=== PATIENT | male | born 1980 | race African-American/Black ===

== ENCOUNTER 2019-09-20 23:34 | Observation (INO) ==
[2019-09-21 00:57] LABS: Basophils % 0.2 % (0.0-0.8); Hematocrit 49.7 VOL% (42.0-52.0); Hemoglobin 16.1 GM/DL (14.0-18.0); Immature Granulocytes % 0.2 %; Immature Granulocytes Absolute 0.03 #; Lymphocytes # 1.3 10*3/uL (1.4-4.0); Mean Corpuscular HGB Conc 32.4 GM/DL (32-36); Mean Platelet Volume 9.3 FL (9.6-12.0); Neutrophils % 82.6 % (38.7-73.9); Platelet Count 219 T/CUMM (130-400); Red Blood Count 5.71 MC/CUMM (3.8-5.5); Red Cell Distribution Width 13.8 % (9.3-17.3); White Blood Count 12.1 T/CUMM (4-12)
[2019-09-21 01:29] LABS: Alanine Aminotransferase 34 U/L (16-61); Albumin 4.7 G/DL (3.4-5.0); Alkaline Phosphatase 130 U/L (45-117); Aspartate Amino Transferase 76 U/L (0-37); Blood Urea Nitrogen 34 MG/DL (7-18); Calcium 9.8 MG/DL (8.5-10.1); Estimated Glom Filtration Rate 50 ML/MIN; Glucose 100 MG/DL (74-106); Osmolality,Calculated 271.5 MOS/KG (273-304); Total Protein 9.5 G/DL (6.4-8.3)
[2019-09-21] MEDS ORDERED: SODIUM CHLORIDE 0.9% 1,000 ML IV STA (01:40)
[2019-09-21 01:54] LABS: Acetaminophen < 2.0 UG/ML (10-30); Salicylate < 2.8 MG/DL (2.8-20)
[2019-09-21 01:57] LABS: Barbiturates Screen,Urine Negative (Negative); Benzodiazepines Screen,Urine Negative (Negative); Cannabinoid Screen,Urine Positive (Negative); Opiate Screen,Urine Negative (Negative); Phencyclidine Screen,Urine Negative (Negative)
[2019-09-21] MEDS ORDERED: INSULIN REGULAR 100 UNIT/ML IV STA (02:26)
[2019-09-21] MEDS ORDERED: DEXTROSE 50% 25 GM/50 ML VIAL IV STA (02:26)
[2019-09-21] MEDS ORDERED: DEXTROSE 50% 25 GM/50 ML SYRINGE IV ONE (02:59)
[2019-09-21] MEDS ORDERED: guaiFENesin/DM ER 600-30 MG TABLET PO PRN (03:32)
[2019-09-21] MEDS ORDERED: diphenhydrAMINE CAP 25 MG CAPSULE PO PRN (03:32)
[2019-09-21] MEDS ORDERED: NICOTINE 21 MG/24 HR PATCH TRANSDERM PRN (03:32)
[2019-09-21] MEDS ORDERED: ONDANSETRON 4 MG/2 ML VIAL IV PRN (03:32)
[2019-09-21] MEDS ORDERED: ALUMINUM/MAGNES/SIMETH MAX STR 30 ML UDCUP PO PRN (03:32)
[2019-09-21] MEDS ORDERED: GLUCAGON 1 MG VIAL IM PRN (03:32)
[2019-09-21] MEDS ORDERED: hydrALAZINE 20 MG/1 ML VIAL IV PRN (03:32)
[2019-09-21] MEDS ORDERED: MORPHINE 4 MG/1 ML VIAL IV PRN (03:32)
[2019-09-21] MEDS ORDERED: DEXTROSE 50% 25 GM/50 ML VIAL IV PRN (03:32)
[2019-09-21] MEDS ORDERED: ACETAMINOPHEN 325 MG TABLET PO PRN (03:32)
[2019-09-21] MEDS: SODIUM CHLORIDE 0.9% 1,000 ML IV SCH ×3 (04:35→23:35)
[2019-09-21] MEDS ORDERED: LORazepam 2 MG/1 ML VIAL IV PRN (05:39)
[2019-09-21] MEDS ORDERED: SODIUM POLYSTYRENE SULFATE 15 GM/60 ML BOTTLE PO ONE (06:25)
[2019-09-21 06:41] LABS: Albumin 4.1 G/DL (3.4-5.0); Bilirubin,Total 2.2 MG/DL (0.2-1.0); Calcium 9.8 MG/DL (8.5-10.1); Osmolality,Calculated 274.1 MOS/KG (273-304); Total Protein 8.9 G/DL (6.4-8.3)
[2019-09-22] MEDS: SODIUM CHLORIDE 0.9% 1,000 ML IV SCH ×2 (05:41→14:09)
[2019-09-22 08:55] LABS: Osmolality,Calculated 282.3 MOS/KG (273-304)
[2019-09-22 15:11] VITALS: BP 112/70
== END 2019-09-22 17:38 ==
LOC: N.EDINP 23:34 → N.ED 23:34 → SUATTDRO 09-21 03:32 → N.TELES 09-21 04:29
PROVIDERS: ADMIT Internal Medicine; ATTEND Internal Medicine

== ENCOUNTER 2021-10-16 00:07 | Inpatient (IN) ==
[2021-10-16] MEDS ORDERED: ONDANSETRON 4 MG/2 ML VIAL ONE (00:15)
[2021-10-16] MEDS ORDERED: MORPHINE 2 MG/1 ML SYRINGE ONE (00:15)
[2021-10-16] MEDS ORDERED: DIPH/TET/ACEL PERT BOOSTER VACCINE 0.5 ML VIAL IM ONE (00:19)
[2021-10-16] MEDS ORDERED: MORPHINE 2 MG/1 ML SYRINGE IV STA (00:21)
[2021-10-16] MEDS ORDERED: SODIUM CHLORIDE 0.9% 1,000 ML IV STA (00:22)
[2021-10-16] MEDS ORDERED: ONDANSETRON 4 MG/2 ML VIAL IV STA (00:22)
[2021-10-16 00:27] LABS: Basophils # 0.1 10*3/uL (0.0-0.2); Basophils % 0.7 % (0.0-0.8); Eosinophils # 0.1 10*3/uL (0.0-0.87); Eosinophils % 1.5 % (0.00-10.9); Hematocrit 38.8 VOL% (42.0-52.0); Immature Granulocytes % 0.1 %; Immature Granulocytes Absolute 0.01 #; Lymphocytes # 2.8 10*3/uL (1.4-4.0); Lymphocytes % 41.8 % (21.2-54.2); Mean Corpuscular HGB Conc 30.9 GM/DL (32-36); Mean Corpuscular Volume 91.7 FL (87-102); Mean Platelet Volume 9.1 FL (9.6-12.0); Monocytes # 0.5 10*3/uL (0.11-0.8); Monocytes % 6.9 % (1.7-12.7); Platelet Count 191 T/CUMM (130-400); Red Blood Count 4.23 MC/CUMM (3.8-5.5); Red Cell Distribution Width 15.1 % (9.3-17.3); White Blood Count 6.8 T/CUMM (4-12)
[2021-10-16 00:36] LABS: PT Patient Result 10.7 SECS (10.5-12.0); Partial Thromboplastin Time 22.2 SECS (23.8-32.1)
[2021-10-16] MEDS ORDERED: MICROFIBRILLAR COLLAGEN POWDER 1 GM CAN TOP ONE (00:45)
[2021-10-16] MEDS ORDERED: SEVOFLURANE 1 UNIT/15 MINUTE INH ONE ×5 (00:48→01:36)
[2021-10-16] MEDS ORDERED: ROCURONIUM 50 MG/5 ML VIAL IV ONE (00:48)
[2021-10-16] MEDS ORDERED: LIDOCAINE 2% 5 ML VIAL ONE (00:48)
[2021-10-16] MEDS ORDERED: ETOMIDATE 40 MG/20 ML VIAL IV ONE (00:48)
[2021-10-16] MEDS ORDERED: fentaNYL 250 MCG/5 ML VIAL ONE (00:50)
[2021-10-16 01:10] LABS: Alanine Aminotransferase 167 U/L (16-61); Albumin 3.2 G/DL (3.4-5.0); Alkaline Phosphatase 90 U/L (45-117); Aspartate Amino Transferase 202 U/L (0-37); Blood Urea Nitrogen 16 MG/DL (7-18); Calcium 8.4 MG/DL (8.5-10.1); Carbon Dioxide 26 MMOL/L (21-32); Chloride 109 MMOL/L (98-107); Glucose 146 MG/DL (74-106); Potassium 3.4 MMOL/L (3.5-5.1); Sodium 143 MMOL/L (136-145); Total Protein 6.7 G/DL (6.4-8.2)
[2021-10-16] MEDS ORDERED: PHENYLEPHRINE 1 MG/10 ML SYRINGE IV ONE (01:12)
[2021-10-16] MEDS ORDERED: PHENYLEPHRINE 10 MG/1 ML VIAL IV ONE (01:12)
[2021-10-16] MEDS ORDERED: SUCCINYLCHOLINE 200 MG/10 ML VIAL ONE (01:12)
[2021-10-16] MEDS ORDERED: ceFAZolin 1,000 MG VIAL ONE (01:32)
[2021-10-16] MEDS ORDERED: LACTATED RINGERS 1,000 ML IV ONE (01:36)
[2021-10-16] MEDS ORDERED: SODIUM CHLORIDE 0.9% 1,000 ML IV ONE (01:36)
[2021-10-16] MEDS ORDERED: GLYCOPYRROLATE 0.4 MG/2 ML VIAL ONE (01:46)
[2021-10-16] MEDS ORDERED: NEOSTIGMINE 10 MG/10 ML VIAL ONE (01:47)
[2021-10-16] MEDS ORDERED: ONDANSETRON 4 MG/2 ML VIAL IV PRN ×2 (02:03→02:25)
[2021-10-16] MEDS: HYDROmorphone 1 MG/1 ML SYRINGE IV PRN ×6 (02:12→20:04)
[2021-10-16] MEDS ORDERED: SODIUM CHLORIDE 0.9% 250 ML IV ONE (02:17)
[2021-10-16 02:42] LABS: Hematocrit 49.2 VOL% (42.0-52.0); Hemoglobin 15.5 GM/DL (14.0-18.0)
[2021-10-16] MEDS: DEXTROSE 5% LACTATED RINGERS 1,000 ML IV SCH ×3 (02:51→21:39)
[2021-10-16 02:53] LABS: Bacteria,Urine Occasional /HPF (Few); Mucus,Urine Occasional /LPF (Occasional); RBC,Urine 4 /HPF (0-4); Squamous Epithelial Cell,Urine Occasional /HPF (0-10)
[2021-10-16 02:54] LABS: Bilirubin,Urine Negative (Negative); Blood, Urine Moderate mg/dL (Negative); Glucose,Urine (UA) Negative (Negative); Ketones,Urine Negative (Negative); Nitrite,Urine Negative (Negative); Protein,Urine Trace mg/dL (Negative); Urine Appearance Clear (Clear); Urine Color Yellow (Yellow); Urine Specific Gravity 1.015 (1.001-1.035); Urine Urobilinogen 0.2 eU/dL (<2.0)
[2021-10-16 02:56] LABS: Albumin 3.1 G/DL (3.4-5.0); Bilirubin,Total 0.4 MG/DL (0.20-1.00); Calcium 8.4 MG/DL (8.5-10.1); Osmolality,Calculated 281.3 MOS/KG (273-304); Total Protein 6.7 G/DL (6.4-8.2)
[2021-10-16 05:07] LABS: Barbiturates Screen,Urine Negative (Negative); Benzodiazepines Screen,Urine Negative (Negative); Cannabinoid Screen,Urine Positive (Negative); Opiate Screen,Urine Positive (Negative); Phencyclidine Screen,Urine Negative (Negative)
[2021-10-16] MEDS: PANTOPRAZOLE 40 MG VIAL IV SCH (09:05)
[2021-10-16 10:27] LABS: Hematocrit 43.5 VOL% (42.0-52.0); Hemoglobin 14.2 GM/DL (14.0-18.0)
[2021-10-16 18:12] LABS: Hematocrit 40.5 VOL% (42.0-52.0); Hemoglobin 13.4 GM/DL (14.0-18.0)
[2021-10-17] MEDS: HYDROmorphone 1 MG/1 ML SYRINGE IV PRN ×4 (03:15→19:44)
[2021-10-17] MEDS: DEXTROSE 5% LACTATED RINGERS 1,000 ML IV SCH ×3 (05:36→17:46)
[2021-10-17] MEDS: PANTOPRAZOLE 40 MG VIAL IV SCH (11:03)
[2021-10-17] MEDS ORDERED: GLUCAGON 1 MG VIAL IM PRN (16:36)
[2021-10-17] MEDS ORDERED: hydrALAZINE 20 MG/1 ML VIAL IV PRN (16:37)
[2021-10-17] MEDS ORDERED: DEXTROSE 10% 250 ML BAG IV PRN (16:46)
[2021-10-17] MEDS ORDERED: amLODIPine 10 MG TABLET PO ONE (17:00)
[2021-10-17] MEDS: DOCUSATE SODIUM 100 MG CAPSULE PO SCH (21:41)
[2021-10-18] MEDS: DEXTROSE 5% LACTATED RINGERS 1,000 ML IV SCH ×3 (00:44→20:24)
[2021-10-18] MEDS: HYDROmorphone 1 MG/1 ML SYRINGE IV PRN ×7 (00:44→20:25)
[2021-10-18 05:20] LABS: Basophils % 0.5 % (0.0-0.8); Eosinophils # 0.1 10*3/uL (0.0-0.87); Eosinophils % 1.6 % (0.00-10.9); Hematocrit 40.8 VOL% (42.0-52.0); Hemoglobin 13.6 GM/DL (14.0-18.0); Immature Granulocytes % 0.3 %; Immature Granulocytes Absolute 0.03 #; Lymphocytes # 1.6 10*3/uL (1.4-4.0); Mean Corpuscular HGB Conc 33.3 GM/DL (32-36); Mean Corpuscular Volume 87.7 FL (87-102); Mean Platelet Volume 9.9 FL (9.6-12.0); Monocytes # 0.7 10*3/uL (0.11-0.8); Monocytes % 8.2 % (1.7-12.7); Neutrophils % 71.4 % (38.7-73.9); Red Blood Count 4.65 MC/CUMM (3.8-5.5); Red Cell Distribution Width 14.4 % (9.3-17.3); White Blood Count 8.7 T/CUMM (4-12)
[2021-10-18 05:27] LABS: Platelet Count 117 T/CUMM (130-400)
[2021-10-18 05:39] LABS: Potassium 3.7 MMOL/L (3.5-5.1); Risk Ratio 2.14
[2021-10-18] MEDS: DOCUSATE SODIUM 100 MG CAPSULE PO SCH ×2 (08:20→20:29)
[2021-10-18] MEDS: amLODIPine 10 MG TABLET PO SCH (08:20)
[2021-10-19] MEDS: HYDROmorphone 1 MG/1 ML SYRINGE IV PRN ×8 (01:38→23:50)
[2021-10-19] MEDS ORDERED: PANTOPRAZOLE 40 MG TABLET PO ONE (04:55)
[2021-10-19] MEDS: DEXTROSE 5% LACTATED RINGERS 1,000 ML IV SCH ×3 (04:57→16:19)
[2021-10-19] MEDS: PANTOPRAZOLE 40 MG TABLET PO SCH ×2 (04:57→07:11)
[2021-10-19 05:30] LABS: Basophils % 0.5 % (0.0-0.8); Eosinophils # 0.1 10*3/uL (0.0-0.87); Eosinophils % 1.5 % (0.00-10.9); Hematocrit 43.3 VOL% (42.0-52.0); Immature Granulocytes % 0.5 %; Immature Granulocytes Absolute 0.04 #; Lymphocytes # 1.3 10*3/uL (1.4-4.0); Lymphocytes % 15.7 % (21.2-54.2); Mean Corpuscular HGB Conc 32.3 GM/DL (32-36); Mean Corpuscular Volume 88.9 FL (87-102); Mean Platelet Volume 9.5 FL (9.6-12.0); Monocytes # 0.7 10*3/uL (0.11-0.8); Monocytes % 8.4 % (1.7-12.7); Neutrophils % 73.4 % (38.7-73.9); Platelet Count 134 T/CUMM (130-400); Red Blood Count 4.87 MC/CUMM (3.8-5.5); Red Cell Distribution Width 14.3 % (9.3-17.3); White Blood Count 8.3 T/CUMM (4-12)
[2021-10-19] MEDS: DOCUSATE SODIUM 100 MG CAPSULE PO SCH ×2 (08:09→21:23)
[2021-10-19] MEDS: amLODIPine 10 MG TABLET PO SCH (08:09)
[2021-10-20] MEDS: DEXTROSE 5% LACTATED RINGERS 1,000 ML IV SCH ×3 (04:53→23:26)
[2021-10-20] MEDS: PANTOPRAZOLE 40 MG TABLET PO SCH (05:36)
[2021-10-20] MEDS: HYDROmorphone 1 MG/1 ML SYRINGE IV PRN ×5 (05:37→23:25)
[2021-10-20] MEDS: DOCUSATE SODIUM 100 MG CAPSULE PO SCH ×2 (09:35→21:04)
[2021-10-20] MEDS: amLODIPine 10 MG TABLET PO SCH (09:36)
[2021-10-20] MEDS ORDERED: MAGNESIUM HYDROXIDE SUSP 30 ML UDCUP PO ONE (13:00)
[2021-10-21] MEDS: PANTOPRAZOLE 40 MG TABLET PO SCH (05:10)
[2021-10-21] MEDS: HYDROmorphone 1 MG/1 ML SYRINGE IV PRN ×5 (05:11→21:17)
[2021-10-21 05:17] LABS: Basophils % 0.4 % (0.0-0.8); Eosinophils # 0.1 10*3/uL (0.0-0.87); Eosinophils % 1.6 % (0.00-10.9); Hematocrit 38.3 VOL% (42.0-52.0); Hemoglobin 12.5 GM/DL (14.0-18.0); Immature Granulocytes % 0.4 %; Immature Granulocytes Absolute 0.03 #; Lymphocytes % 11.8 % (21.2-54.2); Mean Corpuscular HGB Conc 32.6 GM/DL (32-36); Mean Platelet Volume 9.6 FL (9.6-12.0); Monocytes % 11.9 % (1.7-12.7); Neutrophils % 73.9 % (38.7-73.9); Platelet Count 176 T/CUMM (130-400); Red Cell Distribution Width 13.8 % (9.3-17.3); White Blood Count 8.2 T/CUMM (4-12)
[2021-10-21 05:38] LABS: Albumin 2.4 G/DL (3.4-5.0); Bilirubin,Total 0.8 MG/DL (0.20-1.00); Calcium 9.1 MG/DL (8.5-10.1); Osmolality,Calculated 271.1 MOS/KG (273-304); Potassium 4.2 MMOL/L (3.5-5.1)
[2021-10-21] MEDS: DEXTROSE 5% LACTATED RINGERS 1,000 ML IV SCH (09:30)
[2021-10-21] MEDS: amLODIPine 10 MG TABLET PO SCH (09:33)
[2021-10-21] MEDS: DOCUSATE SODIUM 100 MG CAPSULE PO SCH ×2 (09:33→21:10)
[2021-10-21] MEDS ORDERED: cefTRIAXone 1,000 MG in SODIUM CHLORIDE 0.9% 100 ML IV SCH (11:30)
[2021-10-21] MEDS: PIPERACILLIN/TAZOBACTAM 3,375 MG in SODIUM CHLORIDE 0.9% 100 ML IV SCH ×2 (13:31→21:09)
[2021-10-21 14:26] LABS: Bilirubin,Urine Negative (Negative); Blood, Urine Trace mg/dL (Negative); Glucose,Urine (UA) Negative (Negative); Ketones,Urine Negative (Negative); Nitrite,Urine Negative (Negative); Protein,Urine Negative (Negative); Urine Appearance Clear (Clear); Urine Color Yellow (Yellow); Urine Specific Gravity 1.025 (1.001-1.035)
[2021-10-21 14:30] LABS: Mucus,Urine Occasional /LPF (Occasional); Squamous Epithelial Cell,Urine Occasional /HPF (0-10)
[2021-10-21] MEDS: AZITHROMYCIN 250 MG TABLET PO SCH (14:49)
[2021-10-21] MEDS: ACETAMINOPHEN 325 MG TABLET PO PRN (23:42)
[2021-10-22] MEDS: DEXTROSE 5% LACTATED RINGERS 1,000 ML IV SCH ×2 (04:43→09:03)
[2021-10-22] MEDS: HYDROmorphone 1 MG/1 ML SYRINGE IV PRN ×5 (04:44→20:58)
[2021-10-22] MEDS: PIPERACILLIN/TAZOBACTAM 3,375 MG in SODIUM CHLORIDE 0.9% 100 ML IV SCH ×3 (04:45→20:56)
[2021-10-22] MEDS: PANTOPRAZOLE 40 MG TABLET PO SCH (05:55)
[2021-10-22] MEDS: DOCUSATE SODIUM 100 MG CAPSULE PO SCH ×2 (09:02→20:55)
[2021-10-22] MEDS: amLODIPine 10 MG TABLET PO SCH (09:02)
[2021-10-22] MEDS: AZITHROMYCIN 250 MG TABLET PO SCH (09:03)
[2021-10-22] MEDS: ACETAMINOPHEN 325 MG TABLET PO PRN (15:54)
[2021-10-23] MEDS: HYDROmorphone 1 MG/1 ML SYRINGE IV PRN ×5 (01:35→22:50)
[2021-10-23] MEDS: PIPERACILLIN/TAZOBACTAM 3,375 MG in SODIUM CHLORIDE 0.9% 100 ML IV SCH ×3 (04:45→20:55)
[2021-10-23 05:43] LABS: Basophils # 0.1 10*3/uL (0.0-0.2); Basophils % 0.7 % (0.0-0.8); Eosinophils # 0.3 10*3/uL (0.0-0.87); Eosinophils % 2.8 % (0.00-10.9); Hematocrit 34.8 VOL% (42.0-52.0); Hemoglobin 11.4 GM/DL (14.0-18.0); Immature Granulocytes % 0.4 %; Immature Granulocytes Absolute 0.04 #; Lymphocytes % 11.1 % (21.2-54.2); Mean Corpuscular HGB Conc 32.8 GM/DL (32-36); Mean Corpuscular Volume 87.9 FL (87-102); Mean Platelet Volume 9.5 FL (9.6-12.0); Monocytes # 0.8 10*3/uL (0.11-0.8); Monocytes % 8.4 % (1.7-12.7); Neutrophils % 76.6 % (38.7-73.9); Platelet Count 232 T/CUMM (130-400); Red Blood Count 3.96 MC/CUMM (3.8-5.5); Red Cell Distribution Width 14.1 % (9.3-17.3)
[2021-10-23] MEDS: PANTOPRAZOLE 40 MG TABLET PO SCH ×2 (06:01→08:16)
[2021-10-23 06:06] LABS: Calcium 8.7 MG/DL (8.5-10.1); Potassium 3.9 MMOL/L (3.5-5.1)
[2021-10-23 06:22] LABS: Mucus,Urine Occasional /LPF (Occasional); Squamous Epithelial Cell,Urine Occasional /HPF (0-10)
[2021-10-23 06:23] LABS: Bilirubin,Urine Negative (Negative); Blood, Urine Trace mg/dL (Negative); Glucose,Urine (UA) Negative (Negative); Ketones,Urine Negative (Negative); Nitrite,Urine Negative (Negative); Protein,Urine Negative (Negative); Urine Appearance Clear (Clear); Urine Color Yellow (Yellow)
[2021-10-23] MEDS: DOCUSATE SODIUM 100 MG CAPSULE PO SCH ×2 (09:21→20:55)
[2021-10-23] MEDS: AZITHROMYCIN 250 MG TABLET PO SCH (09:21)
[2021-10-23] MEDS: amLODIPine 10 MG TABLET PO SCH (09:22)
[2021-10-23] MEDS: VANCOMYCIN INJ 1,250 MG in SODIUM CHLORIDE 0.9% 250 ML IV SCH (12:39)
[2021-10-23] MEDS: ENOXAPARIN 40 MG/0.4 ML SYRINGE SUBCUT SCH (12:39)
[2021-10-23] MEDS: ACETAMINOPHEN 325 MG TABLET PO PRN (19:35)
[2021-10-24] MEDS: VANCOMYCIN INJ 1,250 MG in SODIUM CHLORIDE 0.9% 250 ML IV SCH ×2 (00:55→13:02)
[2021-10-24] MEDS: HYDROmorphone 1 MG/1 ML SYRINGE IV PRN ×5 (01:57→23:00)
[2021-10-24] MEDS: PIPERACILLIN/TAZOBACTAM 3,375 MG in SODIUM CHLORIDE 0.9% 100 ML IV SCH ×3 (05:37→21:26)
[2021-10-24] MEDS: PANTOPRAZOLE 40 MG TABLET PO SCH (05:38)
[2021-10-24 06:00] LABS: Basophils % 0.4 % (0.0-0.8); Eosinophils # 0.3 10*3/uL (0.0-0.87); Eosinophils % 2.9 % (0.00-10.9); Hematocrit 34.3 VOL% (42.0-52.0); Immature Granulocytes % 0.4 %; Immature Granulocytes Absolute 0.04 #; Lymphocytes % 9.7 % (21.2-54.2); Mean Corpuscular HGB Conc 32.1 GM/DL (32-36); Mean Corpuscular Volume 87.9 FL (87-102); Mean Platelet Volume 9.5 FL (9.6-12.0); Monocytes # 0.7 10*3/uL (0.11-0.8); Monocytes % 7.1 % (1.7-12.7); Neutrophils % 79.5 % (38.7-73.9); Platelet Count 306 T/CUMM (130-400); Red Cell Distribution Width 14.2 % (9.3-17.3); White Blood Count 9.8 T/CUMM (4-12)
[2021-10-24] MEDS: DOCUSATE SODIUM 100 MG CAPSULE PO SCH ×2 (09:08→21:25)
[2021-10-24] MEDS: amLODIPine 10 MG TABLET PO SCH (09:08)
[2021-10-24] MEDS: ENOXAPARIN 40 MG/0.4 ML SYRINGE SUBCUT SCH (11:17)
[2021-10-25] MEDS: HYDROmorphone 1 MG/1 ML SYRINGE IV PRN ×6 (02:07→21:44)
[2021-10-25] MEDS: VANCOMYCIN INJ 1,250 MG in SODIUM CHLORIDE 0.9% 250 ML IV SCH ×3 (02:07→21:10)
[2021-10-25] MEDS: PIPERACILLIN/TAZOBACTAM 3,375 MG in SODIUM CHLORIDE 0.9% 100 ML IV SCH ×3 (04:02→22:54)
[2021-10-25] MEDS: PANTOPRAZOLE 40 MG TABLET PO SCH (05:47)
[2021-10-25] MEDS ORDERED: TALC INTRAPLEURAL POWDER 3 GM VIAL INTRAPLEUR ONE (09:35)
[2021-10-25] MEDS ORDERED: MIDAZOLAM 2 MG/2 ML VIAL ONE (10:06)
[2021-10-25] MEDS ORDERED: fentaNYL 100 MCG/2 ML VIAL ONE (10:07)
[2021-10-25] MEDS ORDERED: LIDOCAINE 2% 5 ML VIAL ONE (10:10)
[2021-10-25] MEDS ORDERED: ROCURONIUM 50 MG/5 ML VIAL IV ONE (10:10)
[2021-10-25] MEDS ORDERED: propofoL 200 MG/20 ML VIAL IV ONE (10:10)
[2021-10-25] MEDS ORDERED: ONDANSETRON 4 MG/2 ML VIAL ONE ×2 (10:10→11:12)
[2021-10-25] MEDS ORDERED: LACTATED RINGERS 1,000 ML IV SCH (10:30)
[2021-10-25] MEDS: DOCUSATE SODIUM 100 MG CAPSULE PO SCH ×2 (10:33→21:44)
[2021-10-25] MEDS: amLODIPine 10 MG TABLET PO SCH (10:33)
[2021-10-25] MEDS: ENOXAPARIN 40 MG/0.4 ML SYRINGE SUBCUT SCH (10:33)
[2021-10-25] MEDS ORDERED: SUGAMMADEX 200 MG/2 ML VIAL IV ONE (11:09)
[2021-10-25] MEDS ORDERED: EPINEPHrine 1 MG/10 ML SYRINGE ONE (11:11)
[2021-10-25] MEDS ORDERED: DEXAMETHASONE 4 MG/1 ML VIAL ONE ×3 (11:17)
[2021-10-25] MEDS ORDERED: ONDANSETRON 4 MG/2 ML VIAL IV PRN (11:56)
[2021-10-26] MEDS: VANCOMYCIN INJ 1,250 MG in SODIUM CHLORIDE 0.9% 250 ML IV SCH ×3 (03:16→19:06)
[2021-10-26] MEDS: HYDROmorphone 1 MG/1 ML SYRINGE IV PRN ×3 (03:16→20:17)
[2021-10-26] MEDS: PIPERACILLIN/TAZOBACTAM 3,375 MG in SODIUM CHLORIDE 0.9% 100 ML IV SCH ×3 (05:49→20:19)
[2021-10-26] MEDS: PANTOPRAZOLE 40 MG TABLET PO SCH (07:05)
[2021-10-26] MEDS: DOCUSATE SODIUM 100 MG CAPSULE PO SCH ×2 (09:18→20:19)
[2021-10-26] MEDS: amLODIPine 10 MG TABLET PO SCH (09:18)
[2021-10-26] MEDS: oxyCODONE/ACETAMINOPHEN 5-325 MG TABLET PO PRN ×3 (11:50→23:49)
[2021-10-26] MEDS: ENOXAPARIN 40 MG/0.4 ML SYRINGE SUBCUT SCH (11:51)
[2021-10-27] MEDS: VANCOMYCIN INJ 1,250 MG in SODIUM CHLORIDE 0.9% 250 ML IV SCH ×3 (00:13→21:06)
[2021-10-27] MEDS: PIPERACILLIN/TAZOBACTAM 3,375 MG in SODIUM CHLORIDE 0.9% 100 ML IV SCH ×3 (05:15→22:26)
[2021-10-27] MEDS: oxyCODONE/ACETAMINOPHEN 5-325 MG TABLET PO PRN ×4 (05:21→21:42)
[2021-10-27 05:33] LABS: Basophils # 0.1 10*3/uL (0.0-0.2); Basophils % 0.5 % (0.0-0.8); Eosinophils # 0.6 10*3/uL (0.0-0.87); Eosinophils % 4.3 % (0.00-10.9); Hematocrit 36.3 VOL% (42.0-52.0); Hemoglobin 11.6 GM/DL (14.0-18.0); Immature Granulocytes % 0.5 %; Immature Granulocytes Absolute 0.06 #; Lymphocytes # 2.5 10*3/uL (1.4-4.0); Lymphocytes % 18.6 % (21.2-54.2); Mean Corpuscular Volume 88.3 FL (87-102); Mean Platelet Volume 9.3 FL (9.6-12.0); Monocytes # 0.6 10*3/uL (0.11-0.8); Monocytes % 4.8 % (1.7-12.7); Neutrophils % 71.3 % (38.7-73.9); Platelet Count 555 T/CUMM (130-400); Red Blood Count 4.11 MC/CUMM (3.8-5.5); Red Cell Distribution Width 14.5 % (9.3-17.3); White Blood Count 13.2 T/CUMM (4-12)
[2021-10-27 05:40] LABS: PT Patient Result 10.9 SECS (10.5-12.0)
[2021-10-27 05:46] LABS: Albumin 2.4 G/DL (3.4-5.0); Bilirubin,Total 0.4 MG/DL (0.20-1.00); Calcium 9.4 MG/DL (8.5-10.1); Osmolality,Calculated 278.4 MOS/KG (273-304); Potassium 3.8 MMOL/L (3.5-5.1); Total Protein 7.8 G/DL (6.4-8.2)
[2021-10-27] MEDS: PANTOPRAZOLE 40 MG TABLET PO SCH (06:06)
[2021-10-27] MEDS: DOCUSATE SODIUM 100 MG CAPSULE PO SCH ×2 (09:53→21:05)
[2021-10-27] MEDS: amLODIPine 10 MG TABLET PO SCH (09:53)
[2021-10-27] MEDS: HYDROmorphone 1 MG/1 ML SYRINGE IV PRN ×3 (10:44→23:17)
[2021-10-27] MEDS: ENOXAPARIN 40 MG/0.4 ML SYRINGE SUBCUT SCH (10:47)
[2021-10-28] MEDS: oxyCODONE/ACETAMINOPHEN 5-325 MG TABLET PO PRN ×2 (04:45→10:07)
[2021-10-28 05:21] LABS: Basophils # 0.1 10*3/uL (0.0-0.2); Basophils % 0.7 % (0.0-0.8); Eosinophils # 0.5 10*3/uL (0.0-0.87); Eosinophils % 3.9 % (0.00-10.9); Hematocrit 35.4 VOL% (42.0-52.0); Hemoglobin 11.2 GM/DL (14.0-18.0); Immature Granulocytes % 1.3 %; Immature Granulocytes Absolute 0.16 #; Lymphocytes # 1.7 10*3/uL (1.4-4.0); Mean Corpuscular HGB Conc 31.6 GM/DL (32-36); Mean Corpuscular Volume 89.4 FL (87-102); Mean Platelet Volume 8.8 FL (9.6-12.0); Monocytes # 0.6 10*3/uL (0.11-0.8); Neutrophils % 75.1 % (38.7-73.9); Platelet Count 544 T/CUMM (130-400); Red Blood Count 3.96 MC/CUMM (3.8-5.5); Red Cell Distribution Width 14.3 % (9.3-17.3); White Blood Count 12.4 T/CUMM (4-12)
[2021-10-28 05:38] LABS: Alanine Aminotransferase 61 U/L (16-61); Albumin 2.5 G/DL (3.4-5.0); Alkaline Phosphatase 133 U/L (45-117); Aspartate Amino Transferase 30 U/L (0-37); Bilirubin,Total < 0.39 MG/DL (0.20-1.00); Blood Urea Nitrogen 12 MG/DL (7-18); Calcium 9.3 MG/DL (8.5-10.1); Carbon Dioxide 28 MMOL/L (21-32); Chloride 106 MMOL/L (98-107); Glucose 99 MG/DL (74-106); Osmolality,Calculated 280.3 MOS/KG (273-304); Potassium 4.1 MMOL/L (3.5-5.1); Sodium 141 MMOL/L (136-145); Total Protein 7.7 G/DL (6.4-8.2)
[2021-10-28] MEDS: PANTOPRAZOLE 40 MG TABLET PO SCH (05:38)
[2021-10-28] MEDS: PIPERACILLIN/TAZOBACTAM 3,375 MG in SODIUM CHLORIDE 0.9% 100 ML IV SCH ×2 (05:38→15:30)
[2021-10-28] MEDS: amLODIPine 10 MG TABLET PO SCH (09:10)
[2021-10-28] MEDS: DOCUSATE SODIUM 100 MG CAPSULE PO SCH (09:10)
[2021-10-28] MEDS: VANCOMYCIN INJ 1,250 MG in SODIUM CHLORIDE 0.9% 250 ML IV SCH (10:15)
[2021-10-28] MEDS: ENOXAPARIN 40 MG/0.4 ML SYRINGE SUBCUT SCH (12:05)
[2021-10-28 14:53] VITALS: BP 139/89
== END 2021-10-28 15:24 | disposition left against medical advice (07) | DRG 957 ==
LOC: EDUNIT# → EDBD → N.ED 00:07 → N.EDINP 02:02 → N.ICU 02:11 → N.5E 10-17 15:56
PROVIDERS: ADMIT Surgery; ATTEND Surgery